=== PATIENT | male | born 1975 | race Caucasian/White ===

== ENCOUNTER 2016-07-19 06:28 | Emergency (ER) | payer MEDICAID ==
[~2016-07-19] VITALS: Ht 180.3 cm; Wt 112.5 kg
[~2016-07-19 06:28] MED LIST: ACET500C5 PO; HYDR-762 PO
[2016-07-19 06:31] VITALS: Ht 180.3 cm; Wt 112.5 kg
[2016-07-19] MEDS ORDERED: ONDANSETRON 4 MG INJ IV STA (07:11)
[2016-07-19] MEDS ORDERED: SOD CHLORIDE 0.9% 1,000 ML IV STA (07:11)
[2016-07-19] MEDS ORDERED: morphine 4 MG/ML VIAL IV STA (07:11)
--- NOTE | 2016-07-19 07:28 | ERD ---
ER Documentation Chief Complaint Date/Time DATE: 07/19/16 TIME: 07:26 Chief Complaint epigastric pain,diarrhea x 2 days HPI 41-year-old male comes in with abdominal pain that started yesterday. Patient states he has a history of gastritis, however his pain is in the lower abdomen, worse in the right lower quadrant, sharp, moderate. He reports nausea as well as decrease in appetite, the last oral intake was yesterday morning. He denies any fevers or chills. ROS All systems reviewed and are negative except as per history of present illness. Medications Home Meds Active Scripts Omeprazole* (Omeprazole*) 20 Mg Capsule.dr, 20 MG PO BID, #20 Prov:FAY PEREIRA PA-C 07/19/16 Ranitidine Hcl* (Zantac*) 150 Mg Tablet, 150 MG PO BID Y for EPIGASTRIC PAIN, # 30 TAB Prov:FAY PEREIRA PA-C 07/19/16 Ondansetron (Ondansetron Odt) 4 Mg Tab.rapdis, 4 MG PO Q6H Y for NAUSEA AND/OR VOMITING, #10 TAB Prov:FAY PEREIRA PA-C 07/19/16 Acetaminophen* (Tylophen*) 500 Mg Capsule, 1 CAP PO Q6H Y for PAIN AND OR ELEVATED TEMP, #30 CAP Prov:FELIPE UDARTE PA-C 10/23/15 Hydrocodone Bit-Acetaminophen* (V[place]*) 10-325 Mg Tablet, 1 TAB PO Q6 Y for PAIN , #10 TAB Prov:FELIPE DUARTE PA-C 10/23/15 Allergies Allergies: Coded Allergies: Penicillins (Verified Allergy, Intermediate, Rash, 10/23/15) Dizziness, vomiting, Low pressure, PMhx/Soc History of Surgery: No Anesthesia Reaction: No Hx Neurological Disorder: No Hx Respiratory Disorders: Yes (ASTHMA) Hx Cardiac Disorders: Yes (HTN) Hx Psychiatric Problems: No Hx Miscellaneous Medical Probl: Yes (GERD/REFLUX) Hx Alcohol Use: Yes (OOC) Hx Substance Use: No Hx Tobacco Use: Yes Smoking Status: Never smoker Physical Exam Vitals Vital Signs Date Time Temp Pulse Resp B/P Pulse Ox O2 Delivery O2 Flow Rate FiO2 07/19/16 06:31 98.0 86 18 133/90 98 Physical Exam General: Well-developed, well-nourished. The patient appears in no acute distress. HEENT: Head is normocephalic, atraumatic. No scleral icterus. Neck: Supple. Nontender. Lungs: Clear to auscultation. Normal air movement. Heart: Regular rate and rhythm. S1 and S2 are normal. No murmurs, gallops, or rubs. Abdomen: Soft, diffuse lower abdominal pain, negative Yeh's sign, bowel sounds are normoactive. Extremities: No clubbing or cyanosis. Normal pulses. Moving extremities x 4. No weakness. Neurologic: Alert and oriented 3. No focal deficits. Skin: Normal turgor. No rash or lesions. Result Diagram: 07/19/16 0700 07/19/16 0700 Results 24 hrs Laboratory Tests Test 07/19/16 07:00 07/19/16 07:20 White Blood Count 8.810^3/ul Red Blood Count 4.7510^6/ul Hemoglobin 14.9g/dl Hematocrit 43.2% Mean Corpuscular Volume 90.9fl Mean Corpuscular Hemoglobin 31.4pg Mean Corpuscular Hemoglobin Concent 34.5g/dl Red Cell Distribution Width 13.2% Platelet Count 67833^3/UL Mean Platelet Volume 11.2fl Neutrophils % 74.4% Lymphocytes % 17.8% Monocytes % 6.2% Eosinophils % 1.1% Basophils % 0.2% Nucleated Red Blood Cells % 0.0/100WBC Neutrophils # 6.610^3/ul Lymphocytes # 1.610^3/ul Monocytes # 0.610^3/ul Eosinophils # 0.110^3/ul Basophils # 0.010^3/ul Nucleated Red Blood Cells # 0.010^3/ul Sodium Level 138mmol/L Potassium Level 4.2mmol/L Chloride Level 108mmol/L Carbon Dioxide Level 23mmol/L Anion Gap 11 Blood Urea Nitrogen 19mg/dl Creatinine 0.90mg/dl Glucose Level 113mg/dl Calcium Level 9.2mg/dl Total Bilirubin 0.2mg/dl Direct Bilirubin 0.00mg/dl Indirect Bilirubin 0.2mg/dl Aspartate Amino Transf (AST/SGOT) 114IU/L Alanine Aminotransferase (ALT/SGPT) 94IU/L Alkaline Phosphatase 108IU/L Total Protein 7.5g/dl Albumin 4.2g/dl Globulin 3.30g/dl Albumin/Globulin Ratio 1.27 Lipase 103U/L Urine Color LT. YELLOW Urine Clarity CLEAR Urine pH 5.5 Urine Specific [place] >=1.030 Urine Ketones NEGATIVE Urine Nitrite NEGATIVE Urine Bilirubin NEGATIVE Urine Urobilinogen 0.2 E.U./dL Urine Leukocyte Esterase NEGATIVE Urine Hemoglobin NEGATIVE Urine Glucose NEGATIVE% Urine Total Protein NEGATIVE Current Medications Medications (Trade) Dose Ordered Sig/Clive Route PRN Reason Start Time Stop Time Status Last Admin Dose Admin Sodium Chloride (NS) 1,000 ml @ 1,000 mls/hr Q1H STAT IV 07/19/16 07:11 07/19/16 08:10 DC 07/19/16 07:29 Morphine Sulfate (morphine) 4 mg ONCE STAT IV 07/19/16 07:11 07/19/16 07:13 DC 07/19/16 07:25 Ondansetron HCl (Zofran Inj) 4 mg ONCE STAT IV 07/19/16 07:11 07/19/16 07:13 DC 07/19/16 07:25 PROCEDURE: CT Abdomen and Pelvis without contrast. CLINICAL INDICATION: Abdominal pain. TECHNIQUE: Routine axial tomographic images of the abdomen and pelvis were obtained from the domes the diaphragm to the symphysis pubis. The patient was scanned withoutoral or intravenous contrast. Coronal and sagittal reformatted images were obtained from the axial source images. Images were reviewed on a high-resolution PACS workstation. One or more of the following dose reduction techniques were used: Automated exposure control, Adjustment of the mA and/or kV according to patient size, and/ or Use of iterative reconstruction technique. The total exam CTDI equals 22.35 mGy and the total exam DLP equals 1465.18 mGy-cm. COMPARISON: None. FINDINGS: The visualized portions of the lung bases are clear. Evaluation of the intra-abdominal solid organs is somewhat limited on this noncontrast examination. The liver appears normal in size. There is no intra or extrahepatic biliary dilatation. The gallbladder is unremarkable by CT criteria. The spleen, pancreas, and adrenal glands are unremarkable. The kidneys are symmetric in size. No renal, ureteral, or bladder calculi are identified. No perinephric inflammatory changes are identified. The urinary bladder is grossly unremarkable. The bowel demonstrates normal course and caliber. There is no evidence of bowel obstruction. The appendix is normal in appearance. The pelvic organs are grossly unremarkable. No intraperitoneal free fluid, free air, or abscess is identified. No retroperitoneal, mesenteric, or inguinal lymphadenopathy is identified. The aorta is normal in caliber. The osseous structures are unremarkable. No significant subcutaneous soft tissue abnormalities are seen. IMPRESSION: Limited noncontrast CT of the abdomen and pelvis. No acute intra-abdominal abnormality identified. RPTAT: HH .Radha Fields MD, MD Date Time Electronically viewed and signed by .Radha Fields MD, MD on 07/19/2016 08 :23 Procedures/MDM ED course: Patient an IV line established, he was given morphine 4 mg, Zofran 4 mg IV, labs and urine were obtained. MDM: 41-year-old male presents with right lower quadrant abdominal pain starting yesterday, CT abdomen and pelvis was unremarkable. No evidence of appendicitis, diverticulitis, bowel obstruction, acute hepatobiliary disease. Labs also reviewed, no leukocytosis, no electrolyte abnormalities, no evidence of pancreatitis. His abdomen is soft at this time, he will be given pain medication as well as medication for gastritis given his history. He is to recheck his abdominal pain in 8-12 hours. Departure Diagnosis: Primary Impression: Abdominal pain Condition: FAY Plummer PA-C Jul 19, 2016 07:28
[2016-07-19 07:30] LABS: ADD SCAN DIFF NO
[2016-07-19 07:31] LABS: BASOPHILS % 0.2 % (0.0-2.0); EOSINOPHILS # 0.1 10^3/ul (0.0-0.5); EOSINOPHILS % 1.1 % (0.0-7.0); HEMATOCRIT 43.2 % (42.0-52.0); HEMOGLOBIN 14.9 g/dl (14.0-18.0); LYMPHOCYTES # 1.6 10^3/ul (0.8-2.9); LYMPHOCYTES % 17.8 % (15.0-51.0); MEAN CORPUSCULAR HEMOGLOBIN 31.4 pg (29.0-33.0); MEAN CORPUSCULAR HGB CONC 34.5 g/dl (32.0-37.0); MEAN CORPUSCULAR VOLUME 90.9 fl (82.0-101.0); MEAN PLATELET VOLUME 11.2 fl (7.4-10.4); MONOCYTE # 0.6 10^3/ul (0.3-0.9); MONOCYTES % 6.2 % (0.0-11.0); NEUTROPHIL # 6.6 10^3/ul (1.6-7.5); NEUTROPHILS % 74.4 % (39.0-77.0); PLATELET COUNT 239 10^3/UL (140-415); RED BLOOD COUNT 4.75 10^6/ul (4.70-6.10); RED CELL DISTRIBUTION WIDTH 13.2 % (11.5-14.5); WHITE BLOOD COUNT 8.8 10^3/ul (4.8-10.8)
[2016-07-19 07:44] LABS: ADD UMIC NO; URINE BILIRUBIN (Dip) NEGATIVE (NEGATIVE); URINE BLOOD (Dip) NEGATIVE (NEGATIVE); URINE COLOR LT. YELLOW (YELLOW); URINE GLUCOSE (Dip) NEGATIVE (NEGATIVE); URINE KETONES (Dip) NEGATIVE (NEGATIVE); URINE LEUKOCYTE ESTERASE (Dip) NEGATIVE (NEGATIVE); URINE NITRITE (Dip) NEGATIVE (NEGATIVE); URINE TOTAL PROTEIN (Dip) NEGATIVE (NEGATIVE); URINE UROBILINOGEN (Dip) 0.2 E.U./dL (0.1-1.0)
[2016-07-19 07:52] LABS: ALBUMIN 4.2 g/dl (3.3-4.9); ALBUMIN/GLOBULIN RATIO 1.27; BILIRUBIN,INDIRECT 0.2 mg/dl (0-1.1); BILIRUBIN,TOTAL 0.2 mg/dl (0.2-1.3); CALCIUM 9.2 mg/dl (8.4-10.2); CREATININE 0.9 mg/dl (0.61-1.24); POTASSIUM 4.2 mmol/L (3.5-5.1); TOTAL PROTEIN 7.5 g/dl (6.1-8.1)
--- NOTE | 2016-07-19 08:24 | RADRPT ---
PROCEDURE: CT Abdomen and Pelvis without contrast. CLINICAL INDICATION: Abdominal pain. TECHNIQUE: Routine axial tomographic images of the abdomen and pelvis were obtained from the domes the diaphragm to the symphysis pubis. The patient was scanned withoutoral or intravenous contrast. Coronal and sagittal reformatted images were obtained from the axial source images. Images were re viewed on a high-resolution PACS workstation. One or more of the following dose reduction techniques were used: Automated exposure control, Adjust ment of the mA and/or kV according to patient size, and/or Use of iterative reconstruction technique . The total exam CTDI equals 22.35 mGy and the total exam DLP equals 1465.18 mGy-cm. COMPARISON: None. FINDINGS: The visualized portions of the lung bases are clear. Evaluation of the intra-abdominal solid or ralph is somewhat limited on this noncontrast examination. The liver appears normal in size. There is no intra or extrahepatic biliary dilatation. The gallbladder is unremarkable by CT criteria. Th e spleen, pancreas, and adrenal glands are unremarkable. The kidneys are symmetric in size. No renal, ureteral, or bladder calculi are identified. No perine phric inflammatory changes are identified. The urinary bladder is grossly unremarkable. The bowel demonstrates normal course and caliber. There is no evidence of bowel obstruction. The a ppendix is normal in appearance. The pelvic organs are grossly unremarkable. No intraperitoneal fr ee fluid, free air, or abscess is identified. No retroperitoneal, mesenteric, or inguinal lymphadeno john is identified. The aorta is normal in caliber. The osseous structures are unremarkable. No significant subcutaneous soft tissue abnormalities are seen. IMPRESSION: Limited noncontrast CT of the abdomen and pelvis. No acute intra-abdominal abnormality identified. RPTAT: HH .Radha Fields MD, MD Date Time Electronically viewed and signed by .Radha Fields MD, MD on 07/19/2016 08:23 .G/
[2016-07-19] MEDS ORDERED: RANI150T9 PO (08:30)
[2016-07-19] MEDS ORDERED: ONDA4TAB14 PO (08:30)
[2016-07-19] MEDS ORDERED: OMEP20CA16 PO (08:30)
== END 2016-07-19 08:45 | disposition home or self-care (01) ==
LOC: FTE 06:28
DX: R10.30 Lower abdominal pain, unspecified (principal); I10 Essential (primary) hypertension; J45.909 Unspecified asthma, uncomplicated; Z87.891 Personal history of nicotine dependence
CPT/HCPCS: 36415; 74176; 80053; 81003; 83690; 85025; 96374; 96375; J2270; J2405; J7030; Z7502

== ENCOUNTER 2016-08-18 09:10 | Emergency (ER) | payer MEDICAID ==
[~2016-08-18] VITALS: Ht 180.3 cm; Wt 111.0 kg
[~2016-08-18 09:10] MED LIST changes: +OMEP20CA16 PO; +ONDA4TAB14 PO; +RANI150T9 PO
[2016-08-18 09:14] VITALS: Ht 180.3 cm; Wt 111.0 kg
[2016-08-18] MEDS ORDERED: FAMOTIDINE 20 MG INJ IV STA (09:34)
[2016-08-18] MEDS ORDERED: SOD CHLORIDE 0.9% 1,000 ML IV STA (09:34)
[2016-08-18] MEDS ORDERED: ONDANSETRON 4 MG INJ IV STA (09:34)
[2016-08-18] MEDS ORDERED: morphine 4 MG/ML VIAL IV STA (09:34)
[2016-08-18 10:01] LABS: ADD SCAN DIFF NO
[2016-08-18 10:14] LABS: BASOPHILS % 0.2 % (0.0-2.0); EOSINOPHILS # 0.1 10^3/ul (0.0-0.5); EOSINOPHILS % 1.3 % (0.0-7.0); HEMOGLOBIN 14.6 g/dl (14.0-18.0); LYMPHOCYTES % 18.7 % (15.0-51.0); MEAN CORPUSCULAR HEMOGLOBIN 31.1 pg (29.0-33.0); MEAN CORPUSCULAR VOLUME 91.7 fl (82.0-101.0); MEAN PLATELET VOLUME 11.3 fl (7.4-10.4); MONOCYTE # 0.4 10^3/ul (0.3-0.9); MONOCYTES % 7.9 % (0.0-11.0); NEUTROPHILS % 71.4 % (39.0-77.0); PLATELET COUNT 197 10^3/UL (140-415); RED BLOOD COUNT 4.69 10^6/ul (4.70-6.10); RED CELL DISTRIBUTION WIDTH 12.9 % (11.5-14.5); WHITE BLOOD COUNT 5.6 10^3/ul (4.8-10.8)
[2016-08-18 10:22] LABS: ALBUMIN 3.9 g/dl (3.3-4.9)
[2016-08-18 10:23] LABS: POTASSIUM 4.4 mmol/L (3.5-5.1)
--- NOTE | 2016-08-18 10:24 | RADRPT ---
PROCEDURE: US Abdomen. CLINICAL INDICATION: abdominal pain TECHNIQUE: Multiple real-time images were acquired of the patient's right upper quadrant abdomen a nd retroperitoneum utilizing a high resolution transducer. COMPARISON: None FINDINGS: The pancreas and liver were partially visualized due to overlying bowel gas. The liver demonstrates increased echogenicity. The liver is normal in size and no focal solid lesio ns are seen. The liver measures 17.1 cm in length. The portal vein is patent with normal direction o f flow. No intrahepatic biliary dilatation is seen. No gallstones are identified within the gallbladder. There is no pericholecystic fluid or gallbladd er wall thickening. The common bile duct measures 4.5 mm in maximal dimension. The visualized portions of the pancreas are unremarkable. The tail of the pancreas is not seen. No free fluid is identified. The right kidney is normal in size, and demonstrate normal echogenicity and cortical thickness. The right kidney measures 10.1 cm in long dimension. There is no evidence of hydronephrosis. There are no kidney stones. RPTAT: AA IMPRESSION: Fatty infiltration of the liver. No gallstones are identified within the gallbladder. .David Monroy MD, MD Date Time Electronically viewed and signed by .David Monroy MD, MD on 08/18/2016 10:23 .S/
[2016-08-18 10:25] LABS: ALBUMIN/GLOBULIN RATIO 1.25; BILIRUBIN,INDIRECT 0.4 mg/dl (0-1.1); BILIRUBIN,TOTAL 0.4 mg/dl (0.2-1.3); CREATININE 0.9 mg/dl (0.61-1.24)
[2016-08-18 10:26] LABS: CALCIUM 8.5 mg/dl (8.4-10.2)
[2016-08-18 10:32] LABS: ADD UMIC NO; URINE BILIRUBIN (Dip) NEGATIVE (NEGATIVE); URINE BLOOD (Dip) NEGATIVE (NEGATIVE); URINE COLOR LT. YELLOW (YELLOW); URINE GLUCOSE (Dip) NEGATIVE (NEGATIVE); URINE KETONES (Dip) NEGATIVE (NEGATIVE); URINE LEUKOCYTE ESTERASE (Dip) NEGATIVE (NEGATIVE); URINE NITRITE (Dip) NEGATIVE (NEGATIVE); URINE TOTAL PROTEIN (Dip) NEGATIVE (NEGATIVE); URINE UROBILINOGEN (Dip) 1.0 E.U./dL (0.1-1.0)
[2016-08-18] MEDS ORDERED: LIDOCAINE/MYLANTA 40 ML BTL PO STA (10:46)
--- NOTE | 2016-08-18 10:51 | ERD ---
ER Documentation Chief Complaint Date/Time DATE: 08/18/16 TIME: 10:48 Chief Complaint epigastric pain hx gastritis (previous [place] visit) HPI 41-year-old male presents with epigastric pain for the past 3 days. Pain is burning 8 out of 10 in the epigastric region nonradiating. Admits to nausea and vomiting. He has a history of gastritis which he takes omeprazole for but states this pain feels different and he got no relief with omeprazole. Denies diarrhea. Denies fever. ROS All systems reviewed and are negative except as per history of present illness. Medications Home Meds Active Scripts Omeprazole* (Omeprazole*) 20 Mg Capsule.dr, 20 MG PO BID, #20 Prov:FAY PEREIRA PA-C 07/19/16 Ranitidine Hcl* (Zantac*) 150 Mg Tablet, 150 MG PO BID Y for EPIGASTRIC PAIN, # 30 TAB Prov:FAY PEREIRA PA-C 07/19/16 Ondansetron (Ondansetron Odt) 4 Mg Tab.rapdis, 4 MG PO Q6H Y for NAUSEA AND/OR VOMITING, #10 TAB Prov:FAY PEREIRA PA-C 07/19/16 Acetaminophen* (Tylophen*) 500 Mg Capsule, 1 CAP PO Q6H Y for PAIN AND OR ELEVATED TEMP, #30 CAP Prov:FELIPE DUARTE PA-C 10/23/15 Hydrocodone Bit-Acetaminophen* ([place]*) 10-325 Mg Tablet, 1 TAB PO Q6 Y for PAIN , #10 TAB Prov:FELIPE DUARTE PA-C 10/23/15 Allergies Allergies: Coded Allergies: Penicillins (Verified Allergy, Intermediate, Rash, 08/18/16) Dizziness, vomiting, Low pressure, PMhx/Soc History of Surgery: Yes (LT KNEE ) Anesthesia Reaction: No Hx Neurological Disorder: No Hx Respiratory Disorders: Yes (ASTHMA) Hx Cardiac Disorders: Yes (HTN) Hx Psychiatric Problems: No Hx Miscellaneous Medical Probl: Yes (GERD/REFLUX) Hx Alcohol Use: Yes (OOC) Hx Substance Use: No Hx Tobacco Use: Yes Smoking Status: Current every day smoker FmHx Family History: No diabetes Physical Exam Vitals Vital Signs Date Time Temp Pulse Resp B/P Pulse Ox O2 Delivery O2 Flow Rate FiO2 08/18/16 09:14 97.3 71 18 116/83 99 Physical Exam General: well developed, well nourished, alert, nontoxic, no distress Head: normocephalic, atraumatic Neck: Supple, nontender, no lymphadenopathy, no midline tenderness Respiratory: Clear to auscaultation bilaterally, speaks in full sentences, no use of accesory muscles or labored breathing, no rales, ronchi, or wheezing Cardiovascular: RRR, No murmurs GI: soft, mild right upper quadrant tenderness, non distended, negative murphys sign, negative mcburneys point tenderness, no cva tenderness bilaterally, no rebound or guarding Back: no midline tenderness, no step offs or bony abnormalities, sensation to light touch in tact Result Diagram: 08/18/16 0953 08/18/16 0953 Results 24 hrs Laboratory Tests Test 08/18/16 09:41 08/18/16 09:53 Urine Color LT. YELLOW Urine Clarity CLEAR Urine pH 5.5 Urine Specific [place] 1.020 Urine Ketones NEGATIVE Urine Nitrite NEGATIVE Urine Bilirubin NEGATIVE Urine Urobilinogen 1.0 E.U./dL Urine Leukocyte Esterase NEGATIVE Urine Hemoglobin NEGATIVE Urine Glucose NEGATIVE% Urine Total Protein NEGATIVE White Blood Count 5.610^3/ul Red Blood Count 4.6910^6/ul Hemoglobin 14.6g/dl Hematocrit 43.0% Mean Corpuscular Volume 91.7fl Mean Corpuscular Hemoglobin 31.1pg Mean Corpuscular Hemoglobin Concent 34.0g/dl Red Cell Distribution Width 12.9% Platelet Count 98750^3/UL Mean Platelet Volume 11.3fl Neutrophils % 71.4% Lymphocytes % 18.7% Monocytes % 7.9% Eosinophils % 1.3% Basophils % 0.2% Nucleated Red Blood Cells % 0.0/100WBC Neutrophils # 4.010^3/ul Lymphocytes # 1.010^3/ul Monocytes # 0.410^3/ul Eosinophils # 0.110^3/ul Basophils # 0.010^3/ul Nucleated Red Blood Cells # 0.010^3/ul Sodium Level 138mmol/L Potassium Level 4.4mmol/L Chloride Level 103mmol/L Carbon Dioxide Level 25mmol/L Anion Gap 14 Blood Urea Nitrogen 12mg/dl Creatinine 0.90mg/dl Glucose Level 90mg/dl Calcium Level 8.5mg/dl Total Bilirubin 0.4mg/dl Direct Bilirubin 0.00mg/dl Indirect Bilirubin 0.4mg/dl Aspartate Amino Transf (AST/SGOT) 56IU/L Alanine Aminotransferase (ALT/SGPT) 69IU/L Alkaline Phosphatase 92IU/L Total Protein 7.0g/dl Albumin 3.9g/dl Globulin 3.10g/dl Albumin/Globulin Ratio 1.25 Lipase 88U/L Current Medications Medications (Trade) Dose Ordered Sig/Clive Route PRN Reason Start Time Stop Time Status Last Admin Dose Admin Sodium Chloride (NS) 1,000 ml @ 1,000 mls/hr Q1H STAT IV 08/18/16 09:34 08/18/16 10:33 DC 08/18/16 09:47 Morphine Sulfate (morphine) 4 mg ONCE STAT IV 08/18/16 09:34 08/18/16 09:37 DC 08/18/16 09:46 Ondansetron HCl (Zofran Inj) 4 mg ONCE STAT IV 08/18/16 09:34 08/18/16 09:37 DC 08/18/16 09:46 Famotidine (Pepcid Iv) 20 mg ONCE STAT IV 08/18/16 09:34 08/18/16 09:37 DC 08/18/16 09:46 Procedures/MDM Patient presents with abdominal pain. His vitals are normal. He appears to be in mild distress secondary to pain and he was given IV fluids Zofran and morphine. Workup is unremarkable labs are normal and ultrasound shows no evidence of gallstones. He does have a history of gastritis and this is most likely gastritis flare. He was given GI cocktail before being discharged and he was given copies of all his labs and ultrasound report so that he can follow- up with primary care. Recommended this patient follow up with her primary care doctor within 48 hours or return to the emergency room for any worsening of symptoms. However this time I do believe there is suitable for outpatient management. I answered all their questions and they agreed with the plan and were discharged home. Departure Diagnosis: Primary Impression: Gastritis Condition: Stable NILDA HENRY PA-C August 18, 2016 10:51
[2016-08-18] MEDS ORDERED: OMEP40CA6 PO (10:53)
[2016-08-18] MEDS ORDERED: HYDR-906 PO (10:53)
[2016-08-18] MEDS ORDERED: ONDA4TAB14 PO (10:53)
[2016-08-18 11:08] VITALS: BP 122/78; PULSE 79; RESP 18; TEMP 98
== END 2016-08-18 11:10 | disposition home or self-care (01) ==
LOC: FTE 09:10
DX: K29.70 Gastritis, unspecified, without bleeding (principal); J45.909 Unspecified asthma, uncomplicated; F17.210 Nicotine dependence, cigarettes, uncomplicated; I10 Essential (primary) hypertension
CPT/HCPCS: 76705; 80053; 81003; 83690; 85025; J2270; J2405; J7030; Z7610; 36415; 96361; 96374; 96375

== ENCOUNTER 2017-08-10 01:33 | Inpatient (IN) | END 2017-08-11 15:50 | disposition home or self-care (01) | DRG 392 ==

== ENCOUNTER 2018-08-06 05:56 | Emergency (ER) | payer MEDICAID ==
[~2018-08-06] VITALS: Ht 180.3 cm; Wt 112.5 kg
[~2018-08-06 05:56] MED LIST changes: -ACET500C5 PO; +ALBU8.5H8 INH; +ATOR20TA38 PO; -HYDR-762 PO; -OMEP20CA16 PO; -ONDA4TAB14 PO; +PANT40TA3 PO; +PRED20TA PO; -RANI150T9 PO
[2018-08-06 06:01] VITALS: BP 134/87; PULSE 78; RESP 18; Ht 180.3 cm; Wt 112.5 kg
[2018-08-06] MEDS ORDERED: IBUP800T48 PO (06:27)
[2018-08-06] MEDS ORDERED: AZIT250T PO (06:27)
--- NOTE | 2018-08-06 08:05 | ERD ---
ER Documentation Chief Complaint Chief Complaint mouth pain x 3 days. also c/o fever HPI 43-year-old male presenting with sore throat. Patient stated that 3 days ago he had a large boil on the back of his throat that popped and he had continued pain. He denies any fevers. Denies any numbness or tingling. Has not taken medications for pain but does have some pain in the back of his throat. Denies other medical problems. NKDA. Surgical history denies. Social history denies ROS All systems reviewed and are negative except as per history of present illness. Medications Home Meds Active Scripts Azithromycin* (Zithromax*) 250 Mg Tablet, 250 MG PO .ZPACK DIRECTED, #6 TAB TAKE 500 MG (2 TABS) THE FIRST DAY THEN 250 MG (1 TAB) DAYS 2-5 Prov:EMILY LANZA PA-C 08/06/18 Ibuprofen* (Motrin*) 800 Mg Tab, 800 MG PO Q6, #30 TAB Prov:EMILY LANZA PA-C 08/06/18 Pantoprazole* (Protonix*) 40 Mg Tablet.dr, 40 MG PO DAILY for 30 Days, TAB Prov:EMILY QUINONEZ MD 08/11/17 Reported Medications Atorvastatin Calcium* (Atorvastatin Calcium*) 20 Mg Tablet, 20 MG PO QHS, #30 TAB 08/10/17 Albuterol Sulfate* (Proair HFA*) 8.5 Gm Hfa.aer.ad, 2 PUFF INH Q4H PRN for WHEEZING AND SOB, #1 INHALER 08/10/17 Prednisone* (Prednisone*) 20 Mg Tab, 20 MG PO DAILY, TAB 08/10/17 Allergies Allergies: Coded Allergies: Penicillins (Unverified Allergy, Intermediate, Rash, 08/06/18) Dizziness, vomiting, Low pressure, PMhx/Soc History of Surgery: Yes (LEFT KNEE, RIGHT ANKLE) Anesthesia Reaction: No Hx Neurological Disorder: No Hx Respiratory Disorders: Yes (ASTHMA) Hx Cardiac Disorders: Yes (HTN, HLD) Hx Psychiatric Problems: No Hx Miscellaneous Medical Probl: No Hx Alcohol Use: Yes (RARELY) Hx Substance Use: No Hx Tobacco Use: Yes Smoking Status: Current every day smoker FmHx Family History: No diabetes, No coronary disease, No other Physical Exam Vitals Vital Signs Date Temp Pulse Resp B/P (MAP) Pulse Ox O2 O2 Flow FiO2 Time Delivery Rate 08/06/18 98.2 78 18 134/87 98 06:01 (103) Physical Exam GENERAL: The patient is well-appearing, well-nourished, in no acute distress HEENT: Atraumatic. Conjunctivae are pink. Pupils equal, round, and reactive to light. There is no scleral icterus. Tympanic membranes clear bilaterally. Oropharynx clear. No nystagmus or photophobia. NECK: C-spine is soft and supple. There is no meningismus. There is no cervical lymphadenopathy. No JVD. No bruits. No goiter. CHEST: Clear to auscultation bilaterally. There are no rales, wheezes or rhonchi. HEART: Regular rate and rhythm. No murmurs, clicks, rubs or gallops. Procedures/MDM MDM: 43-year-old male presenting with sore throat. Patient does have petechiae noted on the back of his throat so I will cover for possible infection. I have low suspicion for peritonsillar retropharyngeal abscess. I have low suspicion for meningitis or sepsis. I have low suspicion for she is discharged with strict ER precautions and told to follow-up with primary care within 1 to 2 days for close evaluation. Patient is told symptoms change or worsen to return the ER. All questions answered at discharge Departure Diagnosis: Primary Impression: Sore throat Condition: Stable Patient Instructions: Self-Care for Sore Throats Referrals: [facility] YOU HAVE RECEIVED A MEDICAL SCREENING EXAM AND THE RESULTS INDICATE THAT YOU DO NOT HAVE A CONDITION THAT REQUIRES URGENT TREATMENT IN THE EMERGENCY DEPARTMENT. FURTHER EVALUATION AND TREATMENT OF YOUR CONDITION CAN WAIT UNTIL YOU ARE SEEN IN YOUR DOCTORS OFFICE WITHIN THE NEXT 1-2 DAYS. IT IS YOUR RESPONSIBILITY TO MAKE AN APPOINTMENT FOR FOL-UP CARE. IF YOU HAVE A PRIMARY DOCTOR --you should call your primary doctor and schedule an appointment IF YOU DO NOT HAVE A PRIMARY DOCTOR YOU CAN CALL OUR PHYSICIAN REFERRAL HOTLINE AT IF YOU CAN NOT AFFORD TO SEE A PHYSICIAN YOU CAN CHOSE FROM THE FOLLOWING [facility] [address] [facility]. [facility] [address] [place] [address] [facility] [address] [facility] [address] [facility]. [facility]. [address] Additional Instructions: FOLLOW UP WITH YOUR PRIMARY CARE PHYSICIAN TOMORROW.Return to this facility if you are not improving as expected. EMILY LANZA PA-C August 06, 2018 08:03
== END 2018-08-06 07:06 | disposition home or self-care (01) ==
LOC: FTE 05:56
DX: J02.9 Acute pharyngitis, unspecified (principal)
CPT/HCPCS: 99283

== ENCOUNTER 2018-10-30 13:34 | Emergency (ER) | payer MEDICAID ==
[~2018-10-30] VITALS: Ht 172.7 cm; Wt 115.6 kg
[~2018-10-30 13:34] MED LIST changes: +AZIT250T PO; +FAMO-96 PO; +IBUP800T48 PO; +OMEP20CA16 PO
[2018-10-30 13:39] VITALS: Ht 172.7 cm; Wt 115.6 kg
[2018-10-30] MEDS ORDERED: LIDOCAINE/MYLANTA 40 ML BTL PO STA (14:11)
[2018-10-30] MEDS ORDERED: FAMOTIDINE 20 MG TAB PO STA (14:11)
[2018-10-30] MEDS ORDERED: METOCLOPRAMIDE 10 MG INJ IV STA (14:11)
[2018-10-30 16:18] VITALS: BP 123/81; PULSE 83; RESP 18
--- NOTE | 2018-10-30 20:36 | ERD ---
ER Documentation Chief Complaint Chief Complaint chest tightness and pressure since am HPI 43-year-old male with a history of gastritis presenting with chest pressure in the center of his chest that started early this morning and has been continuous. He also explained he has some burning in his chest. No nausea, vomiting, diarrhea, fever, chills. He did have some shortness of breath. His symptoms have been continuous, with no alleviating or exacerbating factors. Complains of moderate pain at this time. Denies any cardiac history. No recent travel, immobilization, or surgeries. No history of clots. ROS All systems reviewed and are negative except as per history of present illness. Medications Home Meds Active Scripts Famotidine* (Pepcid*) 20 Mg Tablet, 20 MG PO DAILY for 14 Days, TAB Prov:ROSSANA DUKES MD 10/30/18 Omeprazole* (Omeprazole*) 20 Mg Capsule., 20 MG PO BID, #60 CAP Prov:ROSSANA DUKES MD 10/30/18 Ibuprofen* (Motrin*) 800 Mg Tab, 800 MG PO Q6, #30 TAB Prov:EMILY LANZA PA-C 08/06/18 Reported Medications Omeprazole* (Omeprazole*) 20 Mg Capsule., 20 MG PO DAILY, #30 CAP 10/30/18 Albuterol Sulfate* (Proair HFA*) 8.5 Gm Hfa.aer.ad, 2 PUFF INH NEEDED PRN for WHEEZING AND SOB, #1 INHALER 10/30/18 Discontinued Reported Medications Atorvastatin Calcium* (Atorvastatin Calcium*) 20 Mg Tablet, 20 MG PO QHS, #30 TAB 08/10/17 Albuterol Sulfate* (Proair HFA*) 8.5 Gm Hfa.aer.ad, 2 PUFF INH Q4H PRN for WHEEZING AND SOB, #1 INHALER 08/10/17 Prednisone* (Prednisone*) 20 Mg Tab, 20 MG PO DAILY, TAB 08/10/17 Discontinued Scripts Azithromycin* (Zithromax*) 250 Mg Tablet, 250 MG PO .ZPACK DIRECTED, #6 TAB TAKE 500 MG (2 TABS) THE FIRST DAY THEN 250 MG (1 TAB) DAYS 2-5 Prov:EMILY LANZA PA-C 08/06/18 Pantoprazole* (Protonix*) 40 Mg Tablet., 40 MG PO DAILY for 30 Days, TAB Prov:EMILY QUINONEZ MD 08/11/17 Allergies Allergies: Coded Allergies: Penicillins (Unverified Allergy, Intermediate, Rash, 10/30/18) Dizziness, vomiting, Low pressure, PMhx/Soc History of Surgery: Yes (LEFT KNEE, RIGHT ANKLE) Anesthesia Reaction: No Hx Neurological Disorder: No Hx Respiratory Disorders: Yes (ASTHMA) Hx Cardiac Disorders: Yes (HTN, HLD) Hx Psychiatric Problems: No Hx Miscellaneous Medical Probl: No Hx Alcohol Use: Yes (occasional) Hx Substance Use: No Hx Tobacco Use: Yes (occasional) Smoking Status: Current some day smoker FmHx Family History: No coronary disease Physical Exam Vitals Vital Signs Date Temp Pulse Resp B/P (MAP) Pulse Ox O2 O2 Flow FiO2 Time Delivery Rate 10/30/18 98.1 83 18 123/81 97 Room Air 16:18 (95) 10/30/18 99.0 95 20 136/89 99 13:39 (105) Physical Exam Const: No acute distress Head: Atraumatic Eyes: Normal Conjunctiva ENT: Normal External Ears, Nose and Mouth. Neck: Full range of motion. No meningismus. Resp: Clear to auscultation bilaterally Cardio: Regular rate and rhythm, no murmurs. 2+ distal pulses in all 4 extremities Abd: Soft, non tender, non distended. Normal bowel sounds Skin: No petechiae or rashes Back: No midline or flank tenderness Ext: No cyanosis, or edema Neur: Awake and alert Psych: Normal Mood and Affect Result Diagram: 10/30/18 1400 10/30/18 1400 Results 24 hrs Laboratory Tests Test 10/30/18 14:00 White Blood Count 10.2 10^3/ul Red Blood Count 4.77 10^6/ul Hemoglobin 14.9 g/dl Hematocrit 43.2 % Mean Corpuscular Volume 90.6 fl Mean Corpuscular Hemoglobin 31.2 pg Mean Corpuscular Hemoglobin Concent 34.5 g/dl Red Cell Distribution Width 12.9 % Platelet Count 256 10^3/UL Mean Platelet Volume 11.2 fl Immature Granulocytes % 0.400 % Neutrophils % 74.5 % Lymphocytes % 17.0 % Monocytes % 6.7 % Eosinophils % 1.1 % Basophils % 0.3 % Nucleated Red Blood Cells % 0.0 /100WBC Immature Granulocytes # 0.040 10^3/ul Neutrophils # 7.6 10^3/ul Lymphocytes # 1.7 10^3/ul Monocytes # 0.7 10^3/ul Eosinophils # 0.1 10^3/ul Basophils # 0.0 10^3/ul Nucleated Red Blood Cells # 0.0 10^3/ul Sodium Level 140 mmol/L Potassium Level 4.0 mmol/L Chloride Level 106 mmol/L Carbon Dioxide Level 26 mmol/L Anion Gap 8 Blood Urea Nitrogen 16 mg/dl Creatinine 0.94 mg/dl Est Glomerular Filtrat Rate mL/min > 60 mL/min Glucose Level 100 mg/dl Calcium Level 9.5 mg/dl Total Bilirubin 0.4 mg/dl Direct Bilirubin 0.00 mg/dl Indirect Bilirubin 0.4 mg/dl Aspartate Amino Transf (AST/SGOT) 47 IU/L Alanine Aminotransferase (ALT/SGPT) 71 IU/L Alkaline Phosphatase 112 IU/L Troponin I < 0.012 ng/ml Total Protein 7.8 g/dl Albumin 4.4 g/dl Globulin 3.40 g/dl Albumin/Globulin Ratio 1.29 Lipase 133 U/L Current Medications Medications Dose Sig/Clive Start Time Status Last (Trade) Ordered Route PRN Stop Time Admin Dose Reason Admin 10 mg ONCE STAT 10/30/18 DC 10/30/18 Metoclopramid IV 14:11 14:24 e HCl 10/30/18 14:13 (Reglan) Famotidine 20 mg ONCE STAT 10/30/18 DC 10/30/18 (Pepcid) PO 14:11 14:24 10/30/18 14:13 40 ml ONCE STAT 10/30/18 DC 10/30/18 Miscellaneous PO 14:11 14:23 Medication 10/30/18 14:13 (Gi Cocktail (2)) Procedures/MDM EMERGENT LABS AND DIAGNOSTIC STUDIES: Lab Results above were reviewed and interpreted by me. CBC: no anemia or evidence of infection CMP: Mild transaminitis. No evidence of clinically significant electrolyte abnormality, acidosis, renal failure, hypoglycemia, or biliary obstruction Lipase: no evidence of pancreatitis Troponin within normal limits, not indicative of cardiac ischemia 12-lead EKG was interpreted by Jh Dukes MD: Normal Sinus Rhythm with ventricular rate of 94 beats per minute Normal axis Normal intervals No acute ST or T wave changes suggestive of acute ischemia or STEMI. Radiology Results as interpreted by Radiology below were reviewed by Andrew Dukes MD: Chest x-ray shows no acute abnormalities Initial Nursing notes reviewed. Previous Medical Records requested via the Electronic Health Record. EMERGENCY DEPARTMENT COURSE / MEDICAL DECISION MAKING: Patient presents with several hours of continuous chest pain. Vitals unremarkable. ACS work-up initiated. EKG normal. Initial troponin normal. Doubt ACS at this time. Doubt dissection, perforated viscus, pericarditis, myocarditis. Treated with GI cocktail with improvement in his symptoms. I do believe that his symptoms are likely secondary to gastritis exacerbation. Patient reassured. He feels comfortable with discharge plan to follow-up with PCP within the next 1 to 2 weeks and return to the ER for worsening symptoms. Patient's blood pressure was elevated (>120/80) but appears stable without evidence of hypertensive emergency or urgency. The patient was counseled about the risks of hypertension and urged to pursue outpatient monitoring and therapy within a week with their primary care physician. Departure Diagnosis: Primary Impression: Chest pain Chest pain type: unspecified Qualified Codes: R07.9 - Chest pain, unspecified Additional Impressions: Epigastric pain GERD (gastroesophageal reflux disease) Esophagitis presence: esophagitis presence not specified Qualified Codes: K21.9 - Gastro-esophageal reflux disease without esophagitis Condition: Stable Patient Instructions: Gerd (Adult), Epigastric Pain (Uncertain Cause) Additional Instructions: Si el dolor esta empeorando, regresa a la arabella de emergencias. Walter chiqui corey con daugherty medico primario para chiqui referencia al gastroenterologo. ROSSANA DUKES MD Oct 30, 2018 20:36
== END 2018-10-30 16:23 | disposition home or self-care (01) ==
LOC: E/R 13:34
DX: K21.9 Gastro-esophageal reflux disease without esophagitis (principal); I10 Essential (primary) hypertension; J45.909 Unspecified asthma, uncomplicated; F17.210 Nicotine dependence, cigarettes, uncomplicated
CPT/HCPCS: 71045; 80053; 83690; 84484; 85025; J2765; Z7610; 36415; 93005; 96374